=== PATIENT | female | born 1975 | race Caucasian/White ===

== ENCOUNTER 2020-07-05 14:50 | Outpatient (CLI) | payer OTHER, SELFPAY ==
--- NOTE | ~2020-07-05 | MM_ITS ---
EXAMINATION: MM screening felicia BI w andrea HISTORY: Screening mammogram TECHNIQUE: Craniocaudal and mediolateral oblique 3-D tomosynthesis images were obtained and synthetic 2-D images were generated. CAD analysis was submitted and interpreted. COMPARISON: 11/11/2018, 10/31/2016 bilateral digital screening mammogram examinations BREAST PARENCHYMAL COMPOSITION: The breasts are almost entirely fatty. FINDINGS: There is no evidence of suspicious mass, calcification, or architectural distortion to sugg est malignancy in either breast. There has been no suspicious interval change. IMPRESSION: 1. No mammographic evidence of malignancy. 2. Recommend routine screening mammography in one year. BI-RADS Category 1: Negative Reviewed, dictated and finalized at location A. K TRACER
== END 2020-07-05 14:51 | disposition home or self-care (01) ==
LOC: ANHIMG 14:55
PROVIDERS: PCP Family Medicine; Visit Provider Family Medicine
DX: Z12.31 Encounter for screening mammogram for malignant neoplasm of breast (principal)
CPT/HCPCS: 77063; 77067

== ENCOUNTER 2021-07-19 02:47 | Day surgery (SDC) | payer OTHER, SELFPAY ==
[2021-07-10 15:49] VITALS: BMI 37.5
[2021-07-19 06:19] VITALS: BP 144/86; PULSE 60; RESP 16; TEMP 37; O2SAT 100
[2021-07-19 06:42] VITALS: BMI 37.0
[2021-07-19] MEDS: LACTATED RINGERS 1,000 ML 150 ML IV CONT (06:42)
--- NOTE | 2021-07-19 07:18 | WPDANESEPPF ---
Anes - Initial Pre Proc Eval Procedure: Operation Date: 07/19/21 07:30 Proposed Procedures p Esophagogastroduodenoscopy - Shar Haque MD Date/Time: 07/19/21 07:18 Surgeon: Shar Haque MD Pre Op Diagnosis: abnormal CAT scan Patient Data Age: 45 Gender: F Height: 1.65 m Weight: 101.1 kg Last Vital Signs Temp 98.6 F 07/19/21 06:19 Pulse 60 07/19/21 06:19 Resp 16 07/19/21 06:19 BP 144/86 H 07/19/21 06:19 Pulse Ox 100 07/19/21 06:19 Allergies Allergy/AdvReac Type Severity Reaction Status Date / Time No Known Allergies Allergy Verified 07/10/21 15:45 Home Medications Medication Instructions Recorded Confirmed Type No Home Medications 07/10/21 07/10/21 History Patient hx anesthesia problems: none Family hx anesthesia problems: none Results Review: All pre-operative results and documents have been reviewed as part of the pre-operative evaluation. [facility] Past Medical History Medical History (Updated 07/19/21 @ 07:18 by Smith Slade MD) Obesity Social History Social History Smoking packs per day: 0.4 Smoking cigarettes per day: 8.0 Years smoked: 15 Smoking pack-years: 6.00 Smoking status: Former smoker Tobacco type: cigarettes Alcohol intake: current Alcohol use details: occasional-rare Substance use: never Substance use type: does not use Living arrangements: with family Spiritual care concerns: No Anes - Eval Final PreProcedure Day of Procedure 07/19/21 07:18 Patient weight: obese Heart: regular rate and rhythm Lungs: clear to auscultation Airway: Mallampati scale class II Neurological: alert and oriented Last oral intake: >/= 8 hours ASA classification: II Emergent: no Anesthetic plan: proceed Anesthesia type and monitoring: general GIVS and standard monitoring Results Review: All pre-operative results and documents have been reviewed as part of the pre-operative evaluation. Informed Consent: The patient's anesthetic plan and its attendant risks and benefits were discussed with the patient/family/POA. Questions were solicited and answers provided to the satisfaction of the patient/family/POA.
--- NOTE | 2021-07-19 07:25 | WPDGICN ---
Assessment and Plan Assessment and plan (1) Abnormal CT scan: Code(s): R93.89 - Abnormal findings on diagnostic imaging of other specified body structures Status: Acute Assessment and Plan: Patient had an abnormal CT scan as well as an abnormal MRCP in the ER July 05 suggesting gastric mass. This was shortly after eating. Plan is for EGD to assess more thoroughly. Further recommendations will be given after endoscopy. Patient does have some dyspepsia and may benefit from Protonix or other PPI. (2) Cholelithiasis: Code(s): K80.20 - Calculus of gallbladder without cholecystitis without obstruction Status: Acute Assessment and Plan: Patient identified as having gallstones. She has symptomatic complaints. With right upper quadrant pain. Elevated LFTs in the ER. Suspect she may passed these intermittently through the common duct. Plan is for surgical referral for cholecystectomy. GI Consult Note Consult date/time: 07/19/21 07:25 HPI: Bri Jarrell is a 45 year old female Presents for EGD. Patient reports over the last month has had intermittent right upper quadrant abdominal pain. This became rather intense shortly before [place] and she went to [place]. In the ER patient underwent CT scan and a gastric mass was a identified. Patient was noted to have elevated LFTs and subsequent ultrasound and MRCP suggested gallstones. No evidence of common duct gallstones were identified but there was a question of a gastric mass. Patient reports that over the last 1 month she has had some indigestion. She takes Tums with questionable relief. She has not taken any prescription medications. She denies any bleeding. She has had no weight loss. Patient has not yet seen a surgeon for her symptomatic gallstones. LFTs have subsequently returned to normal. Review of Systems Review of Systems: All systems reviewed & are unremarkable except as noted in HPI and below [facility] Past Medical History Medical History (Updated 07/19/21 @ 07:27 by Shar Haque MD) Obesity Social History Social History Smoking packs per day: 0.4 Smoking cigarettes per day: 8.0 Years smoked: 15 Smoking pack-years: 6.00 Smoking status: Former smoker Tobacco type: cigarettes Alcohol intake: current Alcohol use details: occasional-rare Substance use: never Substance use type: does not use Living arrangements: with family Spiritual care concerns: No Meds Home Medications and Allergies Home Medications Medication Instructions Recorded Confirmed Type No Home Medications 07/10/21 07/10/21 History Allergies Allergy/AdvReac Type Severity Reaction Status Date / Time No Known Allergies Allergy Verified 07/10/21 15:45 Vital Signs Vital Signs - 24 hr 07/19/21 06:19 Temperature 98.6 F Pulse Rate 60 Respiratory Rate 16 Blood Pressure 144/86 H Pulse Oximetry 100 Exam Narrative: Physical exam reveals patient to be alert. Vital signs stable. HEENT exam is unremarkable. Lungs are clear to auscultation and percussion. Heart is without murmur or extra sounds. Abdominal exam is somewhat obese. Bowel sounds are present soft nontender with no organomegaly.
[2021-07-19] MEDS: BENZOCAINE (*SP) 60 ML SPRAY CAN (HURRICAINE) 1 SPRAY MUCOUS MEM (07:31)
[2021-07-19 07:45] VITALS: BP 111/55; PULSE 56; RESP 19; O2SAT 100
[2021-07-19 07:55] VITALS: BP 110/59; PULSE 60; RESP 23; O2SAT 100
[2021-07-19 08:05] VITALS: BP 114/70; PULSE 57; RESP 20; O2SAT 100
== END 2021-07-19 08:11 | disposition home or self-care (01) ==
PROVIDERS: PCP Family Medicine; Visit Provider Internal Medicine Gastroenterology
PROC: 0DJ08ZZ Inspection of Upper Intestinal Tract, Via Natural or Artificial Opening Endoscopic (ICD-10-PCS; CPT 43235; principal; 2021-07-19 07:30)
DX: D13.1 Benign neoplasm of stomach (principal); K80.20 Calculus of gallbladder without cholecystitis without obstruction; K30 Functional dyspepsia; Z87.891 Personal history of nicotine dependence; E66.9 Obesity, unspecified; Z68.37 Body mass index [BMI] 37.0-37.9, adult
CPT/HCPCS: 43235; J2704; J7120

== ENCOUNTER 2022-08-19 14:22 | Emergency (ER) | payer OTHER, SELFPAY ==
--- NOTE | ~2022-08-19 | CT_ITS ---
EXAMINATION: CT abdomen pelvis w con DATE: 08/19/2022 17:37 INDICATION: Abdominal pain TECHNIQUE: Computed tomography (CT) of the abdomen and pelvis was performed with 100 mL Omnipaque-350 intravenous contrast. Automated exposure control and iterative reconstruction technique were employe d. The dose-length product was 1289.09 mGy-cm. COMPARISON: None FINDINGS: Lung bases are clear. Heart size is normal. No pericardial or pleural effusion. Minimal intra and ext rahepatic biliary ductal dilation which is within normal limits post cholecystectomy with surgical cl ips in the gallbladder fossa. Spleen, pancreas, bilateral adrenal glands and kidneys are normal. Amanda ls including the appendix are normal. Bladder, anteverted uterus and left adnexa are unremarkable. 1. 9 cm peripherally enhancing likely corpus luteum cyst at the right ovary. Tiny fat-containing umbilic al hernia. No free intraperitoneal gas or fluid. No pathologically enlarged abdominal or pelvic lymph adenopathy. Moderate to severe disc height loss with degenerative endplate changes at L5-S1. Otherwis e mild lumbar and lower thoracic spondylosis. Enthesophytes along the iliac crest and at the posterio r aspect of the right sacral iliac joint. IMPRESSION: 1. 1.9 cm likely corpus luteum cyst in the right ovary. No other acute intra-abdominal/pelvic process . 2. Minimal intra-axial hepatic biliary ductal dilation which is within normal limits post cholecystec renetta but could consider correlation with liver function tests. Reviewed, dictated and finalized at location A. L INSTALLER IMPRESSION: 1. 1.9 cm likely corpus luteum cyst in the right ovary. No other acute intra-ab dominal/pelvic process. 2. Minimal intra-axial hepatic biliary ductal dilation which is within normal l imits post cholecystectomy but could consider correlation with liver function t ests.
[2022-08-19 14:37] VITALS: BP 121/88; PULSE 70; RESP 20; TEMP 36.4; O2SAT 100
[2022-08-19 15:08] LABS: Basophils Absolute Auto 0.1 K/mm3 (0.0-0.1); Basophils Percent Auto 0.7 % (0.2-1.2); Eosinophils Absolute Auto 0.1 K/mm3 (0-0.3); Eosinophils Percent Auto 1.9 % (0-4.4); Hematocrit 40.8 % (37.0-47.0); Hemoglobin 13.6 g/dL (12.0-15.0); Immature Granulocyte Absolute 0.01 K/mm3 (0.00-0.031); Immature Granulocyte Percent A 0.1 % (0-0.5); Lymphocytes Absolute Auto 3.13 K/mm3 (0.9-3.2); Mean Corpuscular HGB Conc 33.3 g/dl (32-36); Mean Corpuscular Hemoglobin 30.3 pg (26-34); Mean Corpuscular Volume 90.9 fl (80-100); Mean Platelet Volume 9.8 fl (7.4-10.4); Monocytes Absolute Auto 0.7 K/mm3 (0.1-0.6); Monocytes Percent Auto 9.4 % (2.6-8.5); Neutrophils Percent Auto 42.9 % (45.5-73.1); Platelet Count Result 257 k/mm3 (150-375); Red Blood Count 4.49 M/mm3 (4.2-5.4); Red Cell Distribution Width 13.3 % (11.5-14.5)
[2022-08-19 15:21] LABS: Alanine Aminotransferase 74 U/L (6-35); Albumin Level 3.9 g/dL (3.5-5.1); Alkaline Phosphatase 63 U/L (38-126); Anion Gap 5 mmol/L (8-16); Aspartate Amino Transferase 129 U/L (14-36); Bilirubin,Total 0.8 mg/dL (0.2-1.3); Blood Urea Nitrogen 20 mg/dL (7-17); Calcium 8.8 mg/dL (8.4-10.2); Carbon Dioxide 29 mmol/L (22-30); Chloride 105 mmol/L (98-107); Estimated CRCL calculation 104 ml/min; Estimated Glomerular Filt Rate > 60; Glucose 98 mg/dL (65-110); Lipase 45 U/L (23-300); Potassium 3.7 mmol/L (3.4-5.0); Sodium 139 mmol/L (137-145)
[2022-08-19 15:26] LABS: Appearance Urine Slightly Cloudy (Clear); Bilirubin Urine Negative (Negative); Blood Urine Negative (Negative); Color Urine Yellow (Yellow); Glucose Urine UA Negative (Negative); Ketones Urine Negative (Negative); Leukocyte Esterase Ur Negative LEU/UL (Negative); Nitrate Urine Negative (Negative); Protein Urine Negative (Negative); Specific Grav Ur 1.025 (1.001-1.035); Urobilinogen Urine 0.2 mg/dL (<2.0)
[2022-08-19 15:34] LABS: Amorphous Sediment Urine Few; Bacteria Urine Trace /hpf; Mucus Urine Rare /lpf; RBC Urine 0-2 /hpf (0-2); Squamous Epithelial Cell Urine Few /hpf (Few); WBC Urine 0-3 /hpf
[2022-08-19 15:45] LABS: Add Urine Microscopic? YES
--- NOTE | 2022-08-19 16:22 | ED.GENADULT ---
HPI - General Adult General Chief complaint: Abdominal Pain Stated complaint: epigastric pain Time Seen by Provider: 08/19/22 15:53 Source: RN notes reviewed History of Present Illness HPI narrative: Patient presents emergency department from work for abdominal pain. Patient states symptoms began at approximately 11:30 AM today after she ate lunch states the pain is located across the upper abdomen in the epigastric right and left upper quadrants. States the pain is described as sharp and stabbing and does not radiate she denies any fever chills nausea vomiting diarrhea chest pain shortness of breath or any other symptoms. States she took 2 Tums for the symptoms with minimal relief. 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 but has had no symptoms since then states her gallbladder was removed at that time as well Related Data Allergies Allergy/AdvReac Type Severity Reaction Status Date / Time No Known Allergies Allergy Verified 07/26/21 14:43 Review of Systems Review of Systems: Gen.: Denies fevers or chills ENT: Denies congestion Respiratory: Denies shortness of breath or cough CV: Denies chest pain or palpitations GI: See HPI Musculoskeletal: Denies back pain or muscle pain Neuro: Denies numbness, tingling, weakness or focal weakness Skin: Denies rash Except as documented, all other systems reviewed and negative [facility] Past Medical History Medical History Obesity Surgical History Surgical History History of delivery Family History Family History Grandparent Carcinoma of colon Ovarian cancer Esophageal cancer Non-Hodgkin lymphoma Social History Social History Smoking packs per day: 0.4 Smoking cigarettes per day: 8.0 Years smoked: 15 Smoking pack-years: 6.00 Smoking status: Former smoker Tobacco type: cigarettes Alcohol intake: current Alcohol use details: occasional-rare Substance use: never Substance use type: does not use Living arrangements: with family Occupation/Education: occupation Additional occupation/education comments: [employer] Spiritual care concerns: No Exam Narrative: APPEARANCE: No acute distress, nontoxic, resting in bed HEENT: Normocephalic, atraumatic, OMM RESPIRATORY: No respiratory distress, clear to auscultation bilaterally with no rhonchi wheezing or rales CARDIOVASCULAR: RRR s murmur ABDOMINAL: Soft nondistended tender palpation epigastric, right upper quadrant and left upper quadrant no tenderness in the right lower quadrant in the left lower quadrant no rebound or guarding MUSCULOSKELETAl: Moves all extremities. No clubbing, cyanosis or edema. NEURO: Awake and alert. Following commands, speech normal, no focal deficits SKIN:: Warm, dry. Normal Color PSYCHIATRIC: Normal affect/mood Course Course Emergency Course: Patient states pain is improved with Tylenol and GI cocktail states that her heartburn has been worse recently she has not been following up with GI since her surgery as her GI doctor had left Patient states that they are feeling much better at this time. States abdominal pain has improved. Repeat abdominal exam shows the patient's abdomen to be soft with no surgical abdomen present. Did discuss with patient ovarian cyst will refer for COMPENSATION ADMINISTRATOR follow-up. Discussed with patient results of workup and diagnosis. Discussed need for follow-up with primary care physician, reasons to return to the emergency department in proper use of medication. Patient understands and agrees to current treatment plan Vital Signs Vital signs: Vital Signs Temperature 97.6 F 08/19/22 14:37 Pulse Rate 70 08/19/22 14:37 Respiratory Rate 20 08/19
[2022-08-19] MEDS: SODIUM CHLORIDE 0.9% IV 1,000 ML 999 ML IV CONT (16:31)
[2022-08-19 17:22] LABS: Pregnancy On Board Control Positive; Urine Pregnancy Test Negative
== END 2022-08-19 19:19 | disposition home or self-care (01) ==
PROVIDERS: Emergency Provider Emergency Medicine; PCP Family Medicine
DX: R10.13 Epigastric pain (principal); N83.201 Unspecified ovarian cyst, right side; E66.9 Obesity, unspecified; Z68.37 Body mass index [BMI] 37.0-37.9, adult; Z87.891 Personal history of nicotine dependence
CPT/HCPCS: 36415; 74177; 80053; 81001; 81025; 83690; 85025; 96365; 99284; A9270; J0131; J7030; Q9967

== ENCOUNTER 2022-12-20 12:20 | Outpatient (CLI) | payer OTHER, SELFPAY ==
--- NOTE | ~2022-12-20 | MMUS_ITS ---
EXAMINATION: MM diagnostic felicia BI w andrea, US breast LT limited HISTORY: Possible left breast abnormalities TECHNIQUE: Additional 3-D tomosynthesis images of the breasts were performed and synthetic 2-D images were generated. CAD analysis was submitted and interpreted. High resolution Limited left breast ultr asound was performed. COMPARISON: Comparison to multiple prior studies sequentially, with oldest reviewed study dated 11/04. BREAST PARENCHYMAL COMPOSITION: Breast composed of scattered areas of fibroglandular density FINDINGS: MAMMOGRAPHIC FINDINGS: There are no suspicious masses, calcifications or architectural distortion in either breast to sugges t malignancy. ULTRASOUND: Limited left breast ultrasound: Normal heterogeneous echotexture without focal solid or cystic mass. IMPRESSION: 1. No evidence for malignancy in either breast. 2. Routine yearly screening mammogram and regular clinical breast examination are recommended. BI-RADS Category 1: Negative Reviewed, dictated and finalized at location A. IMPRESSION: 1. No evidence for malignancy in either breast. 2. Routine yearly screening mammogram and regular clinical breast examination a re recommended. BI-RADS Category 1: Negative
== END 2022-12-20 12:21 | disposition home or self-care (01) ==
LOC: ANHIMG 12:21
PROVIDERS: PCP Family Medicine; Visit Provider Family Medicine
DX: N64.4 Mastodynia (principal)
CPT/HCPCS: 76642; 77062; 77066; G0279